=== PATIENT | male | born 1985 | race Caucasian/White ===

== ENCOUNTER → 2016-07-23 | Outpatient (CLI) | payer OTHER | LOC: COL.VAS 11:14 | DX: R06.02 Shortness of breath (principal); M06.9 Rheumatoid arthritis, unspecified ==

== ENCOUNTER → 2016-07-29 | Outpatient (CLI) | payer OTHER | LOC: COL.PUL 10:11 | DX: R06.02 Shortness of breath (principal); F17.200 Nicotine dependence, unspecified, uncomplicated | CPT/HCPCS: J7674 ==